=== PATIENT | female | born 1990 | race Caucasian/White ===

== ENCOUNTER 2016-12-11 08:30 | Emergency (ER) | payer BC ==
[~2016-12-11] VITALS: Ht 167.6 cm; Wt 65.0 kg
[~2016-12-11 08:30] MED LIST: NAPROSYN500 MG PO; NORCO 5/3251 TABLET PO
[2016-12-11 09:59] VITALS: BP 119/72
== END 2016-12-11 09:59 | disposition home or self-care (01) ==
LOC: EME 08:30
DX: S93.402A Sprain of unspecified ligament of left ankle, initial encounter (principal); X50.1XXA Overexertion from prolonged static or awkward postures, initial encounter; Y93.01 Activity, walking, marching and hiking
CPT/HCPCS: 73610; 99281; 99283